=== PATIENT | female | born 1990 | race American Indian/Alaskan Native ===

== ENCOUNTER 2020-11-16 00:39 | Emergency (ER) | payer SELFPAY ==
[2020-11-16 01:10] VITALS: BP 136/84
--- NOTE | 2020-11-16 01:11 | Emergency Department Report ---
Chief Complaint: Anxiety Stated Complaint: ACID REFLUX;ANXIETY Time Seen by Provider: 11/16/20 01:04 - HPI History of Present Illness: 30-year-old -[place] female patient presents with complaints of acid reflux and anxiety. Patient states she has had intermittent burning in her stomach since 2013 and that Gas-X and aspirin do not help with her symptoms. She states she has had anxiety for many years that is intermittent and that she has been experiencing this episode of anxiety for the past 2 days due to her acid reflux being flared up. She reports the anxiety causes her to have intermittent chest pain, however she denies any current chest pain, cough, shortness of breath, leg pain/swelling, recent long travel, hormone use, history of DVT/PE, or abnormal heart/lung history. Patient states she is otherwise feeling fine and denies any fever/chills/sweats. No other past medical history or family history of heart disease per patient. Lung and heart exam are normal. Vitals are normal. Recommend patient try OTC omeprazole and follow-up with a primary care provider concerning her GERD and anxiety. Discussed in great detail signs and symptoms that should prompt immediate return to the emergency department in detail with patient who verbalized understanding. She is well-appearing and stable for discharge home - Exam Vital Signs: Vital Signs 11/16/20 00:57 Temperature 97.9 F Pulse Rate 90 Respiratory 14 Rate Blood Pressure 136/84 O2 Sat by Pulse 99 Oximetry MSE screening note: Focused history and physical exam performed. Due to findings the following was ordered: ED Disposition for MSE Clinical Impression: Anxiety GERD (gastroesophageal reflux disease) Qualifiers: Esophagitis presence: esophagitis presence not specified Qualified Code(s): K21.9 - Gastro-esophageal reflux disease without esophagitis Disposition: Z-07 MED SCREENING EXAM-LEFT Condition: Stable Instructions: Food Choices for Gastroesophageal Reflux Disease, Adult, Gastroesophageal Reflux Disease, Adult, [id number], Managing Anxiety, Adult Additional Instructions: Please purchase [id number] famotidine (Pepcid) and take twice daily as needed for heartburn. Referrals: [facility] [Provider Group] - 2-3 Days ED Physical Exam - General Limitations: No Limitations General appearance: alert, in no apparent distress - Head Head exam: Present: atraumatic, normocephalic - Eye Eye exam: Present: normal appearance. Absent: scleral icterus - ENT ENT exam: Present: mucous membranes moist - Neck Neck exam: Present: normal inspection - Respiratory Respiratory exam: Present: normal lung sounds bilaterally. Absent: respiratory distress - Cardiovascular Cardiovascular Exam: Present: regular rate, normal rhythm. Absent: systolic murmur, diastolic murmur, rubs, gallop - GI/Abdominal GI/Abdominal exam: Present: soft - Extremities Exam Extremities exam: Present: full ROM. Absent: calf tenderness (No swelling noted to legs bilaterally) - Back Exam Back exam: Present: full ROM - Neurological Exam Neurological exam: Present: alert, oriented X3, normal gait - Psychiatric Psychiatric exam: Present: normal affect, normal mood - Skin Skin exam: Present: warm, dry, intact, normal color. Absent: rash, cyanosis, diaphoretic, erythema, ecchymosis ED Review of Systems ROS: Stated complaint: ACID REFLUX;ANXIETY Other details as noted in HPI Constitutional: denies: chills, fever, malaise ENT: denies: throat pain Respiratory: denies: cough, shortness of breath Cardiovascular: as per HPI. denies: orthopnea, edema, syncope Gastrointestinal: as per HPI. denies: nausea, vomiting Musculoskeletal: denies: back pain Hematological/Lymphatic: denies: easy bleeding
== END 2020-11-16 01:26 | disposition left against medical advice (07) ==
LOC: ED 00:39
DX: F41.9 Anxiety disorder, unspecified (principal); Z53.21 Procedure and treatment not carried out due to patient leaving prior to being seen by health care provider